=== PATIENT | female | born 1955 | race Caucasian/White ===

== ENCOUNTER → 2018-05-23 | Outpatient (CLI) | payer OTHER ==
[2018-05-23 07:47] LABS: ALANINE AMINOTRANSFERASE 21 U/L (12-78); ALBUMIN 3.8 g/dL (3.4-5.0); ANION GAP 7 mmol/L (5-15); CALCIUM 9.5 mg/dL (8.5-10.1); CHLORIDE 109 mmol/L (98-107); CHOLESTEROL, TOTAL 186 mg/dL (140-239); CREATININE 0.89 mg/dL (0.55-1.02)
[2018-05-23 07:49] LABS: ALKALINE PHOSPHATASE 86 U/L (45-117); BILIRUBIN,TOTAL 0.3 mg/dL (0.2-1.0); CHOL/HDL RATIO 2.3; HDL CHOL % 43 % (28-40); HDL CHOLESTEROL (DIRECT) 80 mg/dL (40-60); LDL CHOLESTEROL,CALCULATED 92 mg/dL (54-169); LDL/HDL RATIO 1.2 (0.5-3.0); TOTAL PROTEIN 7.6 g/dL (6.4-8.2); TRIGLYCERIDES 69 mg/dL (50-200); VLDL CHOLESTEROL 14 mg/dL (0-25)
[2018-05-23 08:01] LABS: HEMOGLOBIN A1C 5.9 % (4.2-6.3)
== END | disposition home or self-care (01) ==
LOC: LAB 07:19
PROVIDERS: ATTEND Family Medicine
DX: I10 Essential (primary) hypertension (principal); E55.9 Vitamin D deficiency, unspecified
CPT/HCPCS: 36415; 80053; 80061; 82043; 82306; 83036

== ENCOUNTER → 2019-08-31 | Outpatient (CLI) | payer OTHER ==
[2019-08-31 07:59] LABS: ALANINE AMINOTRANSFERASE 43 U/L (12-78); ANION GAP 7 mmol/L (5-15); CALCIUM 9.2 mg/dL (8.5-10.1); CHLORIDE 107 mmol/L (98-107); CHOLESTEROL, TOTAL 208 mg/dL (140-239); CREATININE 0.93 mg/dL (0.55-1.02); TRIGLYCERIDES 99 mg/dL (50-200); VLDL CHOLESTEROL 20 mg/dL (0-25)
[2019-08-31 08:01] LABS: ALKALINE PHOSPHATASE 90 U/L (45-117); BILIRUBIN,TOTAL 0.4 mg/dL (0.2-1.0); CHOL/HDL RATIO 3.4; HDL CHOL % 29 % (28-40); HDL CHOLESTEROL (DIRECT) 61 mg/dL (40-60); LDL CHOLESTEROL,CALCULATED 127 mg/dL (54-169); LDL/HDL RATIO 2.1 (0.5-3.0); TOTAL PROTEIN 7.5 g/dL (6.4-8.2)
== END | disposition home or self-care (01) ==
LOC: LAB 07:03
PROVIDERS: ATTEND Family Medicine
DX: I10 Essential (primary) hypertension (principal); E55.9 Vitamin D deficiency, unspecified
CPT/HCPCS: 36415; 80053; 80061; 82043; 82306